=== PATIENT | female | born 1980 | race Caucasian/White ===

== ENCOUNTER 2020-09-24 15:08 | Observation (INO) | payer BC, SELFPAY ==
[2020-09-24 15:08] VITALS: BP 141/89; PULSE 89; RESP 18; TEMP 35.6; O2SAT 99
[2020-09-24 15:09] VITALS: BP 141/89; PULSE 86; RESP 18; TEMP 35.6; O2SAT 100; BMI 28.9
--- NOTE | 2020-09-24 15:29 | ED.DCSUM_ITS ---
History of Present Illness Chief Complaint: Abd Pain Informant: Patient Narrative: 40-year-old female presenting with lower abdominal pain which she states radiates across the lower abdomen. Patient states she has history of hernia repair and gastric bypass as well as history of appendectomy. She states the pain started acutely about an hour hour and a half ago. Patient complains of nausea as well. Denies vaginal complaints. No dysuria or hematuria. No fever or chills. Past Medical History - Allergies and Home Meds Allergies/Adverse Reactions: Allergies NSAIDS (Non-Steroidal Anti-Inflamma Adverse Reaction (Verified 09/24/20 15:11) Other Prior records reviewed: Yes Past Medical History: - - Gastric bypass, ovarian cysts Surgical History: - - Appendectomy, hernia repair, gastric bypass Lives: Alone Smoking Status: Unknown if ever smoked Alcohol: None Drugs: None - Family History Maternal Family History: Reports: - - Hypothyroidism. Mother had psychiatry issues. Paternal Family History: Reports: - - Muscular dystrophy Review of Systems General: Denies: Chills, Fever, Sweats Eyes: Denies: Visual changes - bilaterally, Diplopia ENT: Denies: Rhinorrhea, Sore throat Cardiovascular: Denies: Chest pain, Palpitations Respiratory: Denies: Dyspnea, Cough, Dyspnea on exertion Gastrointestinal: Reports: Abdominal pain, Nausea. Denies: Diarrhea, Constipation Genitourinary: Denies: Dysuria, Hematuria Musculoskeletal: Denies: Myalgias, Arthralgias Skin: Denies: Rash, Abscess Neurological: Denies: Headache, Weakness, Parasthesia Psych: Denies: Depression, Anxiety Physical Exam Vital Signs/Narrative: Vital Signs Temp Pulse Resp BP Pulse Ox 09/24/20 15:09 96.1 F L 86 18 141/89 H 100 09/24/20 15:08 96.1 F L 89 18 141/89 H 99 Inital Vital Signs reviewed: Yes General: Well nourished, No Acute Distress Head: Normocephalic, Atraumatic Eyes: Perrl, EOMI ENT: Moist mucous membranes, No rhinorrhea Cardiovascular: Regular rate, Regular rhythm Respiratory: No distress, CTA bilaterally Abdomen: Soft, Nondistended, Tender - Tenderness to palpation over the central lower abdomen. Abdomen is nonperitoneal. Extremities: Nontender, No edema Skin: Normal color, No rash Neurological: Alert, Oriented x3, Cranial nerves II-XII grossly intact Psychological: Normal affect, Normal Mood Diagnostic/Tx/Re-eval Clinical Impression(s) from Imaging Studies Transvaginal US 09/24/20 15:30 IMPRESSION: Normal transvaginal pelvic ultrasound with an intrauterine device. Electronically Signed: Gatito Chu MD at 17:02 EST Tel , Service support , Abdomen/Pelvis CT 09/24/20 16:38 IMPRESSION: No acute abnormality. Electronically Signed: Gatito Chu MD at 17:16 EST Tel , Service support , Chest CTA 09/24/20 18:45 IMPRESSION: Normal CTA chest examination, without a demonstrated pulmonary embolism or arterial dissection. Electronically Signed: Zina Virk MD at 19:33 EST , Service support , Laboratory Data 09/24/20 09/24/20 09/24/20 15:45 15:45 15:45 WBC 6.9 RBC 4.29 Hgb 12.0 Hct 37.3 MCV 86.9 MCH 28.0 MCHC 32.2 RDW Std Deviation 48.8 H RDW Coeff of Guilherme 15.4 H Plt Count 413 MPV 8.7 Immature Gran % (Auto) 0.400 Neut % (Auto) 57.2 Lymph % (Auto) 28.9 [place] % (Auto) 7.9 Eos % (Auto) 5.2 H Baso % (Auto) 0.4 Absolute Neuts (auto) 4.0 Absolute Lymphs (auto) 2.00 Nucleated RBC % 0 Sodium 139 Potassium 4.2 Chloride 109 H Carbon Dioxide 26.0 Anion Gap 4 L BUN 11 Creatinine 0.71 Estim Creat Clear Calc 87.13 Est GFR (MDRD) Af Amer 118 Est GFR (MDRD) Non-Af 97 BUN/Creatinine Ratio 15.5 Glucose 90 Lactic Acid Calcium 8.8 Total Bilirubin 0.30 AST 13 L ALT 23 Alkaline Phosphatase 85 Total Protein 6.9 Albumin 4.2 Globulin 2.7 Albumin/Globulin Ratio 1.6 Lipase 83 Urine Color Urine Clarity Urine pH Ur Specific [place] Urine Protein Urine Glucose (UA) Urine Ketones Urine Occult Blood Urine Nitrite Urine Bilirubin Urine Urobilinogen Ur Leukocyte Esterase Urine RBC Urine WBC Ur Squamous Epith Cells Urine Bacteria Urine Mucus Urine Test 09/24/20 09/24/20 15:58 18:15 WBC RBC Hgb Hct MCV MCH MCHC RDW Std Deviation RDW Coeff of Guilherme Plt Count MPV Immature Gran % (Auto) Neut % (Auto) Lymph % (Auto) [place] % (Auto) Eos % (Auto) Baso % (Auto) Absolute Neuts (auto) Absolute Lymphs (auto) Nucleated RBC % Sodium Potassium Chloride Carbon Dioxide Anion Gap BUN Creatinine Estim Creat Clear Calc Est GFR (MDRD) Af Amer Est GFR (MDRD) Non-Af BUN/Creatinine Ratio Glucose Lactic Acid 0.5 Calcium Total Bilirubin AST ALT Alkaline Phosphatase Total Protein Albumin Globulin Albumin/Globulin Ratio Lipase Urine Color Yellow Urine Clarity Clear Urine pH 6.0 Ur Specific [place] 1.015 Urine Protein Negative Urine Glucose (UA) Normal Urine Ketones 15 H Urine Occult Blood Negative Urine Nitrite Negative Urine Bilirubin Negative Urine Urobilinogen Normal Ur Leukocyte Esterase Negative Urine RBC 0 SEEN Urine WBC 0 SEEN Ur Squamous Epith Cells 0 SEEN Urine Bacteria RARE Urine Mucus 0 SEEN Urine Test Negative - Medical Decision Making 40-year-old female presenting with abdominal pain which was acute in onset. Patient states that initially felt like her ruptured ovarian cyst which has had in the past. Patient was given multiple doses of Dilaudid I was unable to control her pain. Patient had transvaginal ultrasound which did not identify any pathology. Patient continued to have pain in the lower abdomen and I did obtain CT of the abdomen pelvis with IV contrast which did not identify acute process. Patient was given IV fluids as well. I did attempt to obtain CT a of the abdomen pelvis given her ongoing pain and ordered a lactic acid which was 0.5 so I have a low suspicion for ischemic gut. I have found no other imaging or lab test that explain the patient's pain. I did inadvertently order CTA of the chest which was performed and was negative for acute findings. I did wish to obtain CTA of the abdomen however given that she has had 2 contrast boluses radiology will not perform this. Patient's CBC shows stable hemoglobin and no leukocytosis. CMP shows normal renal function, electrolytes, LFTs. Lipase negative. Given her ongoing pain I felt it was necessary to admit her to the hospital for pain control. I spoke with Dr. George who felt that it was probably more gynecologic and recommended that the hospitalist obtain consult from them inpatient. Patient may possibly need repeat imaging tomorrow. Impression: 1. Abdominal pain ED Disposition - Plan for ED Patient: Disposition: Acute Care Hospital [facility]
--- NOTE | 2020-09-24 15:30 | US_ITS ---
STUDY: ULTRASOUND TRANSVAGINAL CLINICAL: Female, 40 years old. LOWER PELVIC PAIN X 1 HOUR, HX OF OVARIAN CYSTS. SPORADIC CYCLE. PT ASSISTED IN MOVING TWO MORBIDLY OBESE PTS AT WORK TODAY. TECHNIQUE: Transvaginal COMPARISON: None. FINDINGS: Normal uterine size measuring 7.2 x 4.3 x 3.3 cm in maximal craniocaudal dimension. There are no myometrial masses. Normal endometrial thickness measuring 4 mm. There are no endometrial masses, and there is no fluid in the endometrial cavity. Intrauterine device within the endometrial cavity. Normal uterine cervix. Normal right ovary, measuring 3.5 x 3.8 x 2.2 cm. There are multiple follicles without a dominant cyst. Normal left ovary, measuring 3.5 x 1.7 x 2.3 cm. There are multiple follicles without a dominant cyst. There is no free fluid in the pelvis. Polycystic ovary disease: No. US/Transvaginal Non- IMPRESSION: Normal transvaginal pelvic ultrasound with an intrauterine device. Electronically Signed: Gatito Chu MD at 17:02 EST Tel , Service support ,
[2020-09-24] MEDS: Ondansetron 4 MG/2 ML Vial IV (15:48)
[2020-09-24] MEDS: Morphine 4 MG/ML Syringe IV (15:48)
[2020-09-24 16:05] LABS: Basophil# 0.03 X10^3/uL; Basophil% 0.4 % (0-1); Eosinophil# 0.36 X10^3/uL; Eosinophils% 5.2 % (0-5); Hematocrit 37.3 % (37-47); Lymphocyte % 28.9 % (19-41); Mean Corp Hgb Conc 32.2 g/dL (32-36); Mean Corpuscular Volume 86.9 fL (81-99); Mean Platelet Vol. 8.7 fl (6.2-12.0); Monocyte# 0.55 X10^3/uL; Monocyte% 7.9 % (0-10); NRBC Flagged by Analyzer 0 % (0-5); Neutrophil # 3.95 X10^3/uL (2.7-7.7); Neutrophil % 57.2 % (47-70); Platelet Count 413 K/mm3 (150-450); RBC Distribution Width CV 15.4 % (11.6-14.6); RBC Distribution Width SD 48.8 fl (35.1-43.9); Red Blood Count 4.29 M/mm3 (4.2-5.4); White Blood Count 6.9 K/mm3 (4.4-11.0)
[2020-09-24 16:17] LABS: ALB/GLOB Ratio 1.6 RATIO (0.9-2.4); AST(SGOT) 13 U/L (15-37); Alanine Aminotransfer ALT/SGPT 23 U/L (13-56); Albumin, Serum 4.2 g/dL (3.2-5.0); Alkaline Phosphatase 85 U/L (45-117); Anion Gap 4 (5-15); BUN 11 mg/dL (7-18); BUN/Creat Ratio 15.5 RATIO (10-20); Calcium,Total 8.8 mg/dL (8.5-10.1); Chloride 109 mmol/L (98-107); Creatinine, Serum 0.71 mg/dL (0.55-1.02); EST Glomerular Filtration Rate 97 mL/min (>60); Est Glom Filt Rate - Afr Amer 118 mL/min (>60); Estimated Creatinine Clearance 87.13 ml/min; Globulin 2.7 g/dL (2.2-4.2); Glucose 90 mg/dL (74-106); Potassium 4.2 mmol/L (3.5-5.1); Protein, Total 6.9 g/dL (6.4-8.2); Sodium Level 139 mmol/L (136-145)
[2020-09-24] MEDS: HYDROmorphone 0.5 MG/0.5 ML SYRINGE IV ×6 (16:20→23:36)
[2020-09-24 16:23] LABS: Mucous, Urine 0 SEEN /hpf (<or=2+); Red Blood Cells-Urine 0 SEEN /hpf (0-5); Squamous Epithelial Cells - UA 0 SEEN /hpf (5-10); White Blood Cells 0 SEEN /hpf (0-5)
[2020-09-24 16:28] LABS: Color, Urine Yellow (Yellow); Glucose, Dipstick Normal (Normal); Ketone-Dipstick 15 mg/dl (Negative); Leukocyte Esterase-Dipstick Negative /ul (Negative); Nitrite-Dipstick Negative (Negative); Occult Blood-Urine Negative /ul (Negative); Protein-Dipstick Negative (Negative); Specific Gravity, Urine 1.015 (1.002-1.030); Urine Bilirubin Dipstick Negative (Negative); Urine Clarity Clear (Clear); Urine Urobilinogen Normal (Normal)
--- NOTE | 2020-09-24 16:38 | CT_ITS ---
STUDY: CT ABDOMEN AND PELVIS WITH CONTRAST REASON FOR EXAM: Female, 40 years old. Lower abdomen pain, hx ovarian cysts. Prior gastric bypass, hypertension. RADIATION DOSAGE (If Supplied By Facility): CTDIvol = ( 10.05 ) mGy, DLP = ( 702.95 ) mGycm TECHNIQUE: Transaxial images were obtained from the dome of the diaphragm to the symphysis pubis without oral contrast. IV 100mL Isovue-300 was administered. Sagittal and coronal images were reconstructed. Individualized dose optimization techniques were used for this CT. COMPARISON: None. FINDINGS: The visualized lung bases are unremarkable. The visualized portions of the heart are within normal limits. Normal liver. There is non-visualization of the gallbladder, which may be secondary to either contraction or a prior cholecystectomy. Normal spleen. Normal pancreas. Normal bilateral adrenal glands. Normal right kidney. Normal left kidney. Status post gastric surgery, likely gastric bypass. Normal small intestine. Normal colon. There are surgical clips in the region of the appendix consistent with a prior appendectomy. Normal abdominal aorta. Normal inferior vena cava. Normal retroperitoneum. Normal urinary bladder. Normal abdominal wall. 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 10 mm of anterolisthesis of L5 on S1 consistent with grade [address]/Abdomen/Pelvis W IV Cont ONLY IMPRESSION: No acute abnormality. Electronically Signed: Gatito Chu MD at 17:16 EST Tel , Service support ,
[2020-09-24 16:47] LABS: Bacteria RARE /hpf (None Seen); Internal QC Validated? YES +Cl - CLEAR BKGD; Pregnancy, Urine Negative Negative
[2020-09-24] MEDS: 0.9% Normal Saline 1,000 ML 999 ML IV (18:15)
--- NOTE | 2020-09-24 18:45 | CT_ITS ---
STUDY: CTA CHEST REASON FOR EXAM: Female, 40 years old. ABD PAIN. NO CHEST COMPLAINTS. TALKED TO DR. PATEL TOLD HIM WE ALREADY INJECTED PATIENT HE STILL WANTED PATIENT RE INJECTED. TALKED TO THE RADIOLOGIST. AND HE ALSO SAID TO GO AHEAD AND INJECTED AGAIN IF ER DOC THOUGHT IT WAS NEEDED RADIATION DOSAGE (If Supplied By Facility): CTDIvol = ( 7.07 ) mGy, DLP = ( 190.76 ) mGycm TECHNIQUE: The examination was performed with the intravenous administration of IV 100mL Isovue-370. Post-processing of the angiographic images was performed, with multiplanar reformation and 3D reconstruction. Individualized dose optimization techniques were used for this CT. COMPARISON: None. FINDINGS: Normal enhancement of the main pulmonary artery and right and left pulmonary arteries. Normal enhancement of the bilateral peripheral pulmonary arteries. There is no demonstrated pulmonary embolism. Normal thoracic aorta and visualized great vessels. There is no demonstrated aortic dissection. Normal heart and pericardium. Normal mediastinum. Normal hilar regions. Normal visualized trachea and bronchi. The lungs are well expanded. Normal pulmonary parenchyma. Normal pleura. Normal chest wall structures. Normal osseous structures. Normal visualized upper abdomen. CT/CTA Chest W/WO Contrast IMPRESSION: Normal CTA chest examination, without a demonstrated pulmonary embolism or arterial dissection. Electronically Signed: Zina Virk MD at 19:33 EST , Service support ,
[2020-09-24 19:05] LABS: Lactic Acid 0.5 mmol/L (0.4-1.9)
[2020-09-24 19:49] VITALS: RESP 18
--- NOTE | 2020-09-24 20:06 | HP.PCM_ITS ---
Problem List (1) Intractable abdominal pain Status: Acute History of Present Illness Date of Admission: 09/24/20 Chief Complaint: Abdominal pain The patient is a 40 year old F with a significant history of hypertension; hypothyroidism; GERD; bipolar disorder; appendectomy; hernia repair and gastric bypass surgery who presents to the emergency department with excruciating progressively worsening abdominal pain. Her abdominal pain started from her left lower abdomen and progressed to her right lower abdomen. She described the pain as sharp. She denies any aggravating or ameliorating factors to the pain. Because of the pain she left her work and came to the emergency department. Multiple doses of Dilaudid at emergency department did not help with the pain. Patient initially told that it was a ruptured ovarian cyst since she has had that in the past. She had a one-time episode of vomiting that she attributed it to pain. She denies diarrhea. Last time her bowels moved was on on the morning of the day of presentation Past Medical History Medical History: Medical History (Last Updated 09/24/20 @ 20:[address] Clement España MD) Hypothyroidism E03.9 Hypertension I10 Allergies NSAIDS (Non-Steroidal Anti-Inflamma Adverse Reaction (Verified 09/24/20 15:11) Other Home Medications: Ambulatory Orders Medication Instructions Recorded Gabapentin [Neurontin] 600 mg PO 4X/DAY 09/24/20 Hydrochlorothiazide [Hctz] 25 mg PO DAILY 09/24/20 Lamotrigine [Lamictal] 200 mg PO DAILY 09/24/20 Levothyroxine [Synthroid] 50 mcg PO DAILY 09/24/20 Lisinopril [Zestril] 40 mg PO DAILY 09/24/20 Pantoprazole Sodium [Protonix] 40 mg PO BID 09/24/20 Paroxetine HCl [Paxil Cr] 37.5 mg PO DAILY 09/24/20 Quetiapine Fumarate [Seroquel] 300 mg PO DAILY 09/24/20 Surgical History: - - Appendectomy, hernia repair, gastric bypass Lives: Alone Smoking Status: Current every day smoker Tobacco Use: Cigarettes Alcohol: None Drugs: None - *Family History Maternal History Items: - - Hypothyroidism. Mother had psychiatry issues. Paternal History Items: - - Muscular dystrophy Review of Systems Constitutional: Denies: Chills, Fever, Weight Change HEENT: Denies: Head Aches, Sinus Congestion, Sinus Drainage Cardiovascular: Denies: Chest Pain, Palpitations Respiratory: Denies: Cough, Shortness of breath at rest, Sputum production Gastrointestinal: Reports: Abdominal Pain, Vomiting Genitourinary: Denies: Dysuria Musculoskeletal: Denies: Joint Pain, Joint Tenderness Skin: Denies: Rash, Wounds Neurological: Denies: Numbness, Tingling, Focal weakness Psychiatric: Denies: Anxiety, Depression, Homicidal Ideations, Suicidal Ideations Hematologic/ Lymphatic: Denies: Easy Bruising, Easy Bleeding VTE Information - Inpt Only VTE Present on Admission: No VTE Mechan Device Prophylaxis: None VTE Pharm Prophylaxis ordered?: Yes Patient Problems: Active and Suspected Problems (Last Updated 09/24/20 @ 20:[address] Clement España MD) Intractable abdominal pain (Acute) - Physical Exam Vitals/I&O's: Vital Signs Temp Pulse Resp BP Pulse Ox 96.1 F L 86 18 141/89 H 100 09/24/20 15:09 09/24/20 15:09 09/24/20 19:49 09/24/20 15:09 09/24/20 15:09 Oxygen Delivery Method Room Air Weight: 74 kg Body Mass Index (BMI) 28.9 General: Alert, Oriented x3, - - Writhing in pain HEENT: Atraumatic, PERRLA, EOMI, Normocephalic Neck: Supple, No JVD, Negative Carotid Bruits Lungs: Clear to auscultation, Normal air movement, No rhonchi, No wheeze, No rales Cardiovascular: Regular rate, Regular Rhythm, Normal S1, Normal S2, No murmurs Abdomen: Bowel Sounds Present, Soft, Non Tender Extremities: No edema, Capillary Refill Less than 3 Seconds Skin: No rashes, No breakdown Musculoskeletal: No Tenderness to Palpation of Joints or Extremities Neurological: Cranial nerves II-XII grossly intact Psych/Mental Status: Normal Affect, Appropriate Laboratory Results 09/24/20 15:45: WBC 6.9, RBC 4.29, Hgb 12.0, Hct 37.3, MCV 86.9, MCH 28.0, MCHC 32.2, RDW Std Deviation 48.8 H, RDW Coeff of Guilherme 15.4 H, Plt Count 413, MPV 8.7, Immature Gran % (Auto) 0.400, Neut % (Auto) 57.2, Lymph % (Auto) 28.9, [place] % (Auto) 7.9, Eos % (Auto) 5.2 H, Baso % (Auto) 0.4, Absolute Neuts (auto) 4.0, Absolute Lymphs (auto) 2.00, Nucleated RBC % 0 09/24/20 15:45: Sodium 139, Potassium 4.2, Chloride 109 H, Carbon Dioxide 26.0, Anion Gap 4 L, BUN 11, Creatinine 0.71, Estim Creat Clear Calc 87.13, Est GFR (MDRD) Af Amer 118, Est GFR (MDRD) Non-Af 97, BUN/Creatinine Ratio 15.5, Glucose 90, Calcium 8.8, Total Bilirubin 0.30, AST 13 L, ALT 23, Alkaline Phosphatase 85, Total Protein 6.9, Albumin 4.2, Globulin 2.7, Albumin/Globulin Ratio 1.6 09/24/20 15:58: Urine Color Yellow, Urine Clarity Clear, Urine pH 6.0, Ur Specific [place] 1.015, Urine Protein Negative, Urine Glucose (UA) Normal, Urine Ketones 15 H, Urine Occult Blood Negative, Urine Nitrite Negative, Urine Bilirubin Negative, Urine Urobilinogen Normal, Ur Leukocyte Esterase Negative, Urine RBC 0 SEEN, Urine WBC 0 SEEN, Ur Squamous Epith Cells 0 SEEN, Urine Bacteria RARE, Urine Mucus 0 SEEN, Urine Test Negative 09/24/20 18:15: Lactic Acid 0.5 Assessment/Plan All Active Problems (Last Updated 09/24/20 @ 20:[address] Clement España MD) Intractable abdominal pain (Acute) The patient is a 40 year old F with a significant history of hypertension; hypothyroidism; GERD bipolar disorder; appendectomy; hernia repair and gastric bypass surgery presents emergency department with excruciating progressively w orsening abdominal pain. Intractable abdominal pain Etiology unclear. Received morphine sulfate and multiple doses of Dilaudid at emergency department. Abdomen and pelvis CT was unrevealing. Transvaginal ultrasound was unrevealing. The chest CTA was incidentally done instead of abdominal CTA. Thereafter abdominal CTA could not be ordered as patient would have had 3 CAT scans within a short interval. Lactic acid was unremarkable. Unlikely pancreatitis since it is lower abdominal pain. However will order lipase. As needed Dilaudid ordered. Bowel protocol and antiemetics in place. Lactated Ringer's at 75 mL's per hour ordered. Bentyl ordered. Hypertension Blood pressure on presentation was now within goal Hydrochlorothiazide and lisinopril continued Trend blood pressure and adjust blood pressure medication as necessary. Manic depression Lamotrigine; paroxetine and Seroquel continued Chronic pain Neurontin continued DVT prophylaxis Subcutaneous Lovenox ordered. OBSV E&M: [id number] Initial observation care L2
[2020-09-24 20:29] VITALS: BP 141/98; PULSE 96; RESP 16; TEMP 36.8; O2SAT 98
[2020-09-24 21:10] VITALS: O2SAT 98; BMI 28.7
[2020-09-24 21:35] VITALS: BMI 28.7
[2020-09-24 21:45] VITALS: BP 122/88; PULSE 88; RESP 16; TEMP 36.6; O2SAT 98
[2020-09-24] MEDS: Gabapentin 600 MG Tablet PO (21:47)
[2020-09-24] MEDS: Dicyclomine 10 MG Capsule PO (21:47)
[2020-09-24] MEDS: Pantoprazole Sodium 40 MG Tablet PO (21:48)
[2020-09-24] MEDS: Lactated Ringers 1,000 ML 75 ML IV (21:50)
[2020-09-24 22:32] LABS: Lipase 83 U/L (73-393)
[2020-09-24] MEDS: 0.9% Saline Lock 10 ML Syringe IV (23:36)
[2020-09-25] MEDS: HYDROmorphone 0.5 MG/0.5 ML SYRINGE IV ×8 (02:09→18:40)
[2020-09-25 02:15] VITALS: BP 116/71; PULSE 80; RESP 17; TEMP 36.7; O2SAT 98
[2020-09-25] MEDS: Ondansetron 4 MG/2 ML Vial IV ×2 (03:38→16:39)
[2020-09-25] MEDS: 0.9% Saline Lock 10 ML Syringe IV ×4 (03:39→18:41)
[2020-09-25] MEDS: Dicyclomine 10 MG Capsule PO (06:00)
[2020-09-25] MEDS: Levothyroxine 50 MCG Tablet PO (06:00)
[2020-09-25 06:53] LABS: Absolute Lymphocyte Count 1.37 X10^3/uL (0.83-4.51); Absolute Neutrophil Count 3.4 X10^3/uL (2.0-7.7); Basophil# 0.03 X10^3/uL; Basophil% 0.5 % (0-1); Eosinophil# 0.29 X10^3/uL; Eosinophils% 5.1 % (0-5); Hemoglobin 11.2 g/dL (12.0-15.0); Lymphocyte # 1.37 X10^3/ul (4.0); Lymphocyte % 24.2 % (19-41); Mean Corp Hgb Conc 31.1 g/dL (32-36); Mean Corpuscular Hgb 27.5 pg (27.0-32.0); Mean Corpuscular Volume 88.2 fL (81-99); Mean Platelet Vol. 8.6 fl (6.2-12.0); Monocyte# 0.54 X10^3/uL; Monocyte% 9.5 % (0-10); NRBC Flagged by Analyzer 0 % (0-5); Neutrophil # 3.43 X10^3/uL (2.7-7.7); Neutrophil % 60.5 % (47-70); Platelet Count 330 K/mm3 (150-450); RBC Distribution Width CV 15.3 % (11.6-14.6); RBC Distribution Width SD 49.9 fl (35.1-43.9); Red Blood Count 4.08 M/mm3 (4.2-5.4); White Blood Count 5.7 K/mm3 (4.4-11.0)
[2020-09-25 07:10] VITALS: O2SAT 95
[2020-09-25 07:19] LABS: Anion Gap 4 (5-15); BUN 8 mg/dL (7-18); BUN/Creat Ratio 13.3 RATIO (10-20); Calcium,Total 8.2 mg/dL (8.5-10.1); Chloride 106 mmol/L (98-107); EST Glomerular Filtration Rate 118 mL/min (>60); Est Glom Filt Rate - Afr Amer 142 mL/min (>60); Glucose 114 mg/dL (74-106); Potassium 3.7 mmol/L (3.5-5.1); Sodium Level 138 mmol/L (136-145)
[2020-09-25] MEDS: Lisinopril 40 MG Tablet PO (08:05)
[2020-09-25] MEDS: lamoTRIgine 100 MG Tablet 200 MG PO (08:05)
[2020-09-25] MEDS: hydroCHLOROthiazide 25 MG Tablet PO (08:05)
[2020-09-25] MEDS: Pantoprazole Sodium 40 MG Tablet PO (08:05)
[2020-09-25] MEDS: Enoxaparin 40 MG/0.4 ML Syringe SC (08:06)
[2020-09-25] MEDS: Gabapentin 600 MG Tablet PO ×3 (08:07→18:01)
[2020-09-25] MEDS: Acetaminophen 325 MG Tablet 650 MG PO (08:13)
[2020-09-25] MEDS: PARoxetine CR 12.5 MG Tablet 37.5 MG PO (08:14)
[2020-09-25 08:15] VITALS: BP 113/72; PULSE 90; RESP 20; TEMP 36.7; O2SAT 95
[2020-09-25] MEDS: Dicyclomine 10 MG Capsule 20 MG PO ×2 (11:37→16:40)
[2020-09-25] MEDS: Lactated Ringers 1,000 ML 75 ML IV (12:14)
--- NOTE | 2020-09-25 13:13 | CON.PCM_ITS ---
Reason for Consult Date of Consultation: 09/25/20 Reason for Consultation: Pelvic pain History of Present Illness: The patient is a 40 year old F with a longstanding history of ovarian cysts. IUD was placed by Dr. Gaston in [place] recently, this is her second IUD for bleeding control and cyst control. Patient started with sudden sharp pain yesterday that persisted and is now constant painful heavy pressure in her pelvis. Pain is not relieved by anything but does not seem to be getting worse. Past Medical History Medical History: Medical History (Last Updated 09/24/20 @ 20:[address] Clement España MD) Hypothyroidism E03.9 Hypertension I10 Allergies NSAIDS (Non-Steroidal Anti-Inflamma Adverse Reaction (Verified 09/24/20 15:11) Other Home Medications: Ambulatory Orders Medication Instructions Recorded Acetaminophen/Butalbital/Caffe 1 tab PO Q4H PRN PRN 09/24/20 [Fioricet] Gabapentin [Neurontin] 600 mg PO 4X/DAY 09/24/20 Hydrochlorothiazide [Hctz] 25 mg PO DAILY 09/24/20 Lamotrigine [Lamictal] 200 mg PO DAILY 09/24/20 Levothyroxine [Synthroid] 50 mcg PO DAILY 09/24/20 Lisinopril [Zestril] 40 mg PO DAILY 09/24/20 Pantoprazole Sodium [Protonix] 40 mg PO BID 09/24/20 Paroxetine HCl [Paxil Cr] 37.5 mg PO DAILY 09/24/20 Quetiapine Fumarate [Seroquel] 300 mg PO DAILY 09/24/20 traZODone [Desyrel] 100 mg PO QHS 09/24/20 Surgical History: - - Appendectomy, hernia repair, gastric bypass Lives: Alone Smoking Status: Current every day smoker Tobacco Use: Cigarettes Alcohol: None Drugs: None - *Family History Maternal History Items: - - Hypothyroidism. Mother had psychiatry issues. Paternal History Items: - - Muscular dystrophy Review of Systems Constitutional: Denies: Chills, Fever, Weight Change HEENT: Denies: Head Aches, Sinus Congestion, Sinus Drainage Cardiovascular: Denies: Chest Pain, Palpitations Respiratory: Denies: Cough, Shortness of breath at rest, Sputum production Gastrointestinal: Reports: Abdominal Pain. Denies: Nausea, Vomiting Genitourinary: Denies: Dysuria Gynecological: Denies: Excessively long or heavy periods, Sexual concerns, Vaginal bleeding, Vaginal discharge Musculoskeletal: Denies: Joint Pain, Joint Tenderness Skin: Denies: Rash, Wounds Neurological: Denies: Numbness, Tingling, Focal weakness Psychiatric: Denies: Anxiety, Depression, Homicidal Ideations, Suicidal Ideations Hematologic/ Lymphatic: Denies: Easy Bruising, Easy Bleeding Patient Problems: Active and Suspected Problems (Last Updated 09/24/20 @ 20:[address] Clement España MD) Intractable abdominal pain (Acute) - Physical Exam Vitals/I&O's: Vital Signs Temp Pulse Resp BP Pulse Ox 98.1 F 90 20 H 113/72 95 09/25/20 08:15 09/25/20 08:15 09/25/20 08:15 09/25/20 08:15 09/25/20 08:15 Oxygen Delivery Method Room Air Weight: 162 lb 1.6 oz Body Mass Index (BMI) 28.7 Intake and Output for Last 24 Hours 09/23/20 09/24/20 09/25/20 23:59 23:59 23:59 Intake Total 1150 / 1150 1480 / 1480 Balance 1150 / 1150 1480 / 1480 General: Alert, Oriented x3, Cooperative HEENT: Atraumatic, PERRLA, Normocephalic Oral: Moist Mucosa Neck: Supple Abdomen: Soft, Non Tender, Non-Distended Extremities: No clubbing, No cyanosis, No edema Skin: No rashes Neurological: Neuro grossly intact Laboratory Results 09/24/20 15:45: WBC 6.9, RBC 4.29, Hgb 12.0, Hct 37.3, MCV 86.9, MCH 28.0, MCHC 32.2, RDW Std Deviation 48.8 H, RDW Coeff of Guilherme 15.4 H, Plt Count 413, MPV 8.7, Immature Gran % (Auto) 0.400, Neut % (Auto) 57.2, Lymph % (Auto) 28.9, [place] % (Auto) 7.9, Eos % (Auto) 5.2 H, Baso % (Auto) 0.4, Absolute Neuts (auto) 4.0, Absolute Lymphs (auto) 2.00, Nucleated RBC % 0 09/24/20 15:45: Sodium 139, Potassium 4.2, [place] 109 H, Carbon Dioxide 26.0, Anion Gap 4 L, BUN 11, Creatinine 0.71, Estim Creat Clear Calc 87.13, Est GFR (MDRD) Af Amer 118, Est GFR (MDRD) Non-Af 97, BUN/Creatinine Ratio 15.5, Glucose 90, Calcium 8.8, Total Bilirubin 0.30, AST 13 L, ALT 23, Alkaline Phosphatase 85, Total Protein 6.9, Albumin 4.2, Globulin 2.7, Albumin/Globulin Ratio 1.6 09/24/20 15:45: Lipase 83 09/24/20 15:58: Urine Color Yellow, Urine Clarity Clear, Urine pH 6.0, Ur Specific [place] 1.015, Urine Protein Negative, Urine Glucose (UA) Normal, Urine Ketones 15 H, Urine Occult Blood Negative, Urine Nitrite Negative, Urine Bilirubin Negative, Urine Urobilinogen Normal, Ur Leukocyte Esterase Negative, Urine RBC 0 SEEN, Urine WBC 0 SEEN, Ur Squamous Epith Cells 0 SEEN, Urine Bacteria RARE, Urine Mucus 0 SEEN, Urine Test Negative 09/24/20 18:15: Lactic Acid 0.5 09/25/20 06:40: WBC 5.7, RBC 4.08 L, Hgb 11.2 L, Hct 36.0 L, MCV 88.2, MCH 27.5, MCHC 31.1 L, RDW Std Deviation 49.9 H, RDW Coeff of Guilherme 15.3 H, Plt Count 330, MPV 8.6, Immature Gran % (Auto) 0.200, Neut % (Auto) 60.5, Lymph % (Auto) 24.2, [place] % (Auto) 9.5, Eos % (Auto) 5.1 H, Baso % (Auto) 0.5, Absolute Neuts (auto) 3.4, Absolute Lymphs (auto) 1.37, Nucleated RBC % 0 09/25/20 06:40: Sodium 138, Potassium 3.7, [place] 106, Carbon Dioxide 28.0, Anion Gap 4 L, BUN 8, Creatinine 0.60, Estim Creat Clear Calc 103.10, Est GFR (MDRD) Af Amer 142, Est GFR (MDRD) Non-Af 118, BUN/Creatinine Ratio 13.3, Glucose 114 H, Calcium 8.2 L Current Medications Acetaminophen (Acetaminophen 325 Mg Tablet) 650 mg PO Q6H PRN PRN PRN Reason: Pain Score 1-10/Temp > 100.7 F Last Admin: 09/25/20 08:13 Dose: 650 mg Documented by: Dicyclomine HCl (Dicyclomine 10 Mg Capsule) 20 mg PO ACHS [facility] Last Admin: 09/25/20 11:37 Dose: 20 mg Documented by: Enoxaparin Sodium (Enoxaparin 40 Mg/0.4 Ml Syringe) 40 mg SC DAILY [facility] Last Admin: 09/25/20 08:06 Dose: 40 mg Documented by: Gabapentin (Gabapentin 600 Mg Tablet) 600 mg PO 4X/DAY [facility] Last Admin: 09/25/20 12:17 Dose: 600 mg Documented by: Hydrochlorothiazide (Hydrochlorothiazide 25 Mg Tablet) 25 mg PO DAILY [facility] Last Admin: 09/25/20 08:05 Dose: 25 mg Documented by: Hydromorphone HCl (Hydromorphone 0.5 Mg/0.5 Ml Syringe) 0.5 mg IV Q2H PRN PRN PRN Reason: Pain Score 6-10 Last Admin: 09/25/20 12:14 Dose: 0.5 mg Documented by: Lactated Ringer's () 1,000 mls @ 75 mls/hr IV .[id number] [facility] Last Admin: 09/25/20 12:14 Dose: 75 mls/hr Documented by: Lamotrigine (Lamotrigine 100 Mg Tablet) 200 mg PO DAILY [facility] Last Admin: 09/25/20 08:05 Dose: 200 mg Documented by: Levothyroxine Sodium (Levothyroxine 50 Mcg Tablet) 50 mcg PO DAILY@0600 [facility] Last Admin: 09/25/20 06:00 Dose: 50 mcg Documented by: Lisinopril (Lisinopril 40 Mg Tablet) 40 mg PO DAILY [facility] Last Admin: 09/25/20 08:05 Dose: 40 mg Documented by: Melatonin (Melatonin 3 Mg Tablet) 3 mg PO QHS PRN PRN PRN Reason: INSOMNIA Nicotine (Nicotine 14 Mg Patch) 14 mg TD DAILY [facility] Last Admin: 09/25/20 08:07 Dose: 14 mg Documented by: Ondansetron HCl (Ondansetron 4 Mg/2 Ml Vial) 4 mg IV Q8H PRN PRN PRN Reason: NAUSEA/VOMITING Last Admin: 09/25/20 03:38 Dose: 4 mg Documented by: Pantoprazole Sodium (Pantoprazole Sodium 40 Mg Tablet) 40 mg PO BID [facility] Last Admin: 09/25/20 08:05 Dose: 40 mg Documented by: Paroxetine HCl (Paroxetine Cr 12.5 Mg Tablet) 37.5 mg PO DAILY [facility] Last Admin: 09/25/20 08:14 Dose: 37.5 mg Documented by: Quetiapine Fumarate (Quetiapine 100 Mg Tablet) 300 mg PO DAILY@2200 [facility] Last Admin: 09/24/20 23:38 Dose: Not Given Documented by: Senna/Docusate Sodium (Senna/Docusate Sodium 1 Tablet) 2 tablet PO BID PRN PRN PRN Reason: Constipation Sodium [place] (0.9% Saline Lock 10 Ml Syringe) 10 - 40 ml IV UD PRN PRN Reason: SALINE FLUSH Last Admin: 09/25/20 10:04 Dose: 10 ml Documented by: Assessment/Plan All Active Problems (Last Updated 09/24/20 @ 20:[address] Clement España MD) Intractable abdominal pain (Acute) 40-year-old last menstrual period 08/22/2020 with sudden abdominal pain that is now constant. Based on evaluation and imaging studies no TICKET ATTENDANT findings for pain. Discussed risks of STDs, patient declines STDs stating that she is not sexually active and has never had STDs. No pathology found in the uterus or ovaries. Including no signs of ruptured ovarian cyst, no free fluid in the pelvis. Overall difficult to discern origin of her pain. Based on surgical history and longstanding history of gastric bypass along with gastric ulcers GI seems like the most probable. Patient with history of back pain and findings found on CT cannot rule out musculoskeletal. But at this time again no findings of TICKET ATTENDANT origin. Will sign off at this time. Suggest patient follows up with Dr. Gaston in [place] her primary LEADERSHIP COACH, but is always welcome to be seen here in [place].
--- NOTE | 2020-09-25 15:29 | PCM.DC ---
- Discharge Diagnoses Current Active Problems: Current Active and Chronic Problems (Last Updated 09/24/20 @ 20:[address] Clement España MD) Intractable abdominal pain (Acute) Reason(s) for Visit for Discharge Instructions: Abdominal pain You will use the following diet at home:: Regular Your food should be the consistency of: Regular Your liquids should be the consistency of: Regular/Thin Discharge Activity: Return to Normal Activity Additional Instructions: Your work-up in this hospital stay for abdominal pain was unremarkable. You are recommended to follow-up with gastroenterology or pain management in the outpatient. Continue to take Bentyl as needed for the abdominal pain. Allergies/Adverse Reactions: Allergies NSAIDS (Non-Steroidal Anti-Inflamma Adverse Reaction (Verified 09/24/20 15:11) Other Medications to take at Discharge Acetaminophen/Butalbital/Caffe [Fioricet] 1 tab PO Q4H PRN PRN 09/24/20 Gabapentin [Neurontin] 600 mg PO 4X/DAY 09/24/20 Hydrochlorothiazide [Hctz] 25 mg PO DAILY 09/24/20 Lamotrigine [Lamictal] 200 mg PO DAILY 09/24/20 Levothyroxine [Synthroid] 50 mcg PO DAILY 09/24/20 Lisinopril [Zestril] 40 mg PO DAILY 09/24/20 Pantoprazole Sodium [Protonix] 40 mg PO BID 09/24/20 Paroxetine HCl [Paxil Cr] 37.5 mg PO DAILY 09/24/20 Quetiapine Fumarate [Seroquel] 300 mg PO DAILY 09/24/20 traZODone [Desyrel] 100 mg PO QHS 09/24/20 Dicyclomine HCl [Bentyl] 20 mg PO ACHS 10 Days #30 cap 09/25/20 The following prescriptions were given: Dicyclomine HCl [Bentyl] 20 mg PO ACHS 10 Days #30 cap Transmission Status: Pending to [facility] Primary Care Physician: [facility] [address] Doctor,Out of [NON-STAFF] - Please follow up with your Primary Care Physician in: within 1 week Test Results: Test results from this visit will be discussed in further detail at your follow-up appointment, if applicable. Proposed Discharge Date: 09/25/20
--- NOTE | 2020-09-25 15:30 | DS.PCM_ITS ---
Discharge Date and Diagnosis - Problem List Patient Problems: Active and Suspected Problems (Last Updated 09/24/20 @ 20:[address] Clement España MD) Intractable abdominal pain (Acute) Date of Admission: 09/24/20 Date of Discharge: 09/25/20 - Primary Discharge Diagnosis Acute Problems: Active Problems (Last Updated 09/24/20 @ 20:[address] Celment España MD) Intractable abdominal pain (Acute), unclear etiology Hospital Course and Treatment Imaging Results: Clinical Impression(s) from Imaging Studies Transvaginal US 09/24/20 15:30 IMPRESSION: Normal transvaginal pelvic ultrasound with an intrauterine device. Electronically Signed: Gatito Chu MD at 17:02 EST Tel , Service support , Abdomen/Pelvis CT 09/24/20 16:38 IMPRESSION: No acute abnormality. Electronically Signed: Gatito Chu MD at 17:16 EST Tel , Service support , Chest CTA 09/24/20 18:45 IMPRESSION: Normal CTA chest examination, without a demonstrated pulmonary embolism or arterial dissection. Electronically Signed: Zina Virk MD at 19:33 EST , Service support , Operations: None Procedures: None Summary of Care Provided: The patient is a 40 year old F with PMHx of hypertension, hypothyroidism, history of gastric bypass surgery, bipolar disorder comes in with excruciating abdominal pain. Patient's vitals were stable as well as work-up in the emergency department was unremarkable. Transvaginal ultrasound, abdominal pelvic CT as well as chest CT was unremarkable. Patient was admitted to the floor for intractable abdominal pain. She was noted by nursing to be insistent on her IV pain medications. When I saw her, she insisted on a gynecology consult. Gynecology was consulted and had no new recommendations. Patient was counseled to follow-up with GI or with pain management. OARRS/PMDP search was done prior to discharge and she last failed any narcotics on 08/18/20. Patient was discharged with a 3-day supply of oxycodone. Patient Problems: Active and Suspected Problems (Last Updated 09/24/20 @ 20:[address] Clement España MD) Intractable abdominal pain (Acute) Subjective: On the day of discharge, patient was seen and examined. She complains of generalized sharp, squeezing pain that comes and goes, stated that her pain regimen was not working. Denies any diarrhea nausea or vomiting or fever or chills. Objective: Physical exam: General: Alert, Oriented x3, appears to be in some pain HEENT: Atraumatic, PERRLA, EOMI, Normocephalic Neck: Supple, No JVD, Negative Carotid Bruits Lungs: Clear to auscultation, Normal air movement, No rhonchi, No wheeze, No rales Cardiovascular: Regular rate, Regular Rhythm, Normal S1, Normal S2, No murmurs Abdomen: Bowel Sounds Present, Soft, Non Tender Extremities: No edema, Capillary Refill Less than 3 Seconds Skin: No rashes, No breakdown Musculoskeletal: No Tenderness to Palpation of Joints or Extremities Neurological: Cranial nerves II-XII grossly intact Psych/Mental Status: Normal Affect, Appropriate - Physical Exam Vitals/I&O's: Vital Signs Temp Pulse Resp BP Pulse Ox 98.1 F 90 20 H 113/72 95 09/25/20 08:15 09/25/20 08:15 09/25/20 08:15 09/25/20 08:15 09/25/20 08:15 Oxygen Delivery Method Room Air Weight: 73.527 kg Body Mass Index (BMI) 28.7 Intake and Output for Last 24 Hours 09/23/20 09/24/20 09/25/20 23:59 23:59 23:59 Intake Total 1150 / 1150 1480 / 1480 Balance 1150 / 1150 1480 / 1480 Laboratory Results 09/24/20 15:45: WBC 6.9, RBC 4.29, Hgb 12.0, Hct 37.3, MCV 86.9, MCH 28.0, MCHC 32.2, RDW Std Deviation 48.8 H, RDW Coeff of Guilherme 15.4 H, Plt Count 413, MPV 8.7, Immature Gran % (Auto) 0.400, Neut % (Auto) 57.2, Lymph % (Auto) 28.9, [place] % (Auto) 7.9, Eos % (Auto) 5.2 H, Baso % (Auto) 0.4, Absolute Neuts (auto) 4.0, Absolute Lymphs (auto) 2.00, Nucleated RBC % 0 09/24/20 15:45: Sodium 139, Potassium 4.2, [place] 109 H, Carbon Dioxide 26.0, Anion Gap 4 L, BUN 11, Creatinine 0.71, Estim Creat Clear Calc 87.13, Est GFR (MDRD) Af Amer 118, Est GFR (MDRD) Non-Af 97, BUN/Creatinine Ratio 15.5, Glucose 90, Calcium 8.8, Total Bilirubin 0.30, AST 13 L, ALT 23, Alkaline Phosphatase 85, Total Protein 6.9, Albumin 4.2, Globulin 2.7, Albumin/Globulin Ratio 1.6 09/24/20 15:45: Lipase 83 09/24/20 15:58: Urine Color Yellow, Urine Clarity Clear, Urine pH 6.0, Ur Specific [place] 1.015, Urine Protein Negative, Urine Glucose (UA) Normal, Urine Ketones 15 H, Urine Occult Blood Negative, Urine Nitrite Negative, Urine Bilirubin Negative, Urine Urobilinogen Normal, Ur Leukocyte Esterase Negative, Urine RBC 0 SEEN, Urine WBC 0 SEEN, Ur Squamous Epith Cells 0 SEEN, Urine Bacteria RARE, Urine Mucus 0 SEEN, Urine Test Negative 09/24/20 18:15: Lactic Acid 0.5 09/25/20 06:40: WBC 5.7, RBC 4.08 L, Hgb 11.2 L, Hct 36.0 L, MCV 88.2, MCH 27.5, MCHC 31.1 L, RDW Std Deviation 49.9 H, RDW Coeff of Guilherme 15.3 H, Plt Count 330, MPV 8.6, Immature Gran % (Auto) 0.200, Neut % (Auto) 60.5, Lymph % (Auto) 24.2, [place] % (Auto) 9.5, Eos % (Auto) 5.1 H, Baso % (Auto) 0.5, Absolute Neuts (auto) 3.4, Absolute Lymphs (auto) 1.37, Nucleated RBC % 0 09/25/20 06:40: Sodium 138, Potassium 3.7, [place] 106, Carbon Dioxide 28.0, Anion Gap 4 L, BUN 8, Creatinine 0.60, Estim Creat Clear Calc 103.10, Est GFR (MDRD) Af Amer 142, Est GFR (MDRD) Non-Af 118, BUN/Creatinine Ratio 13.3, Glucose 114 H, Calcium 8.2 L Current Medications Acetaminophen (Acetaminophen 325 Mg Tablet) 650 mg PO Q6H PRN PRN PRN Reason: Pain Score 1-10/Temp > 100.7 F Last Admin: 09/25/20 08:13 Dose: 650 mg Documented by: Dicyclomine HCl (Dicyclomine 10 Mg Capsule) 20 mg PO ACHS [facility] Last Admin: 09/25/20 11:37 Dose: 20 mg Documented by: Enoxaparin Sodium (Enoxaparin 40 Mg/0.4 Ml Syringe) 40 mg SC DAILY [facility] Last Admin: 09/25/20 08:06 Dose: 40 mg Documented by: Gabapentin (Gabapentin 600 Mg Tablet) 600 mg PO 4X/DAY [facility] Last Admin: 09/25/20 12:17 Dose: 600 mg Documented by: Hydrochlorothiazide (Hydrochlorothiazide 25 Mg Tablet) 25 mg PO DAILY [facility] Last Admin: 09/25/20 08:05 Dose: 25 mg Documented by: Hydromorphone HCl (Hydromorphone 0.5 Mg/0.5 Ml Syringe) 0.5 mg IV Q2H PRN PRN PRN Reason: Pain Score 6-10 Last Admin: 09/25/20 14:27 Dose: 0.5 mg Documented by: Lactated Ringer's () 1,000 mls @ 75 mls/hr IV .[id number] [facility] Last Admin: 09/25/20 12:14 Dose: 75 mls/hr Documented by: Lamotrigine (Lamotrigine 100 Mg Tablet) 200 mg PO DAILY [facility] Last Admin: 09/25/20 08:05 Dose: 200 mg Documented by: Levothyroxine Sodium (Levothyroxine 50 Mcg Tablet) 50 mcg PO DAILY@0600 [facility] Last Admin: 09/25/20 06:00 Dose: 50 mcg Documented by: Lisinopril (Lisinopril 40 Mg Tablet) 40 mg PO DAILY [facility] Last Admin: 09/25/20 08:05 Dose: 40 mg Documented by: Melatonin (Melatonin 3 Mg Tablet) 3 mg PO QHS PRN PRN PRN Reason: INSOMNIA Nicotine (Nicotine 14 Mg Patch) 14 mg TD DAILY [facility] Last Admin: 09/25/20 08:07 Dose: 14 mg Documented by: Ondansetron HCl (Ondansetron 4 Mg/2 Ml Vial) 4 mg IV Q8H PRN PRN PRN Reason: NAUSEA/VOMITING Last Admin: 09/25/20 03:38 Dose: 4 mg Documented by: Pantoprazole Sodium (Pantoprazole Sodium 40 Mg Tablet) 40 mg PO BID [facility] Last Admin: 09/25/20 08:05 Dose: 40 mg Documented by: Paroxetine HCl (Paroxetine Cr 12.5 Mg Tablet) 37.5 mg PO DAILY [facility] Last Admin: 09/25/20 08:14 Dose: 37.5 mg Documented by: Quetiapine Fumarate (Quetiapine 100 Mg Tablet) 300 mg PO DAILY@2200 [facility] Last Admin: 09/24/20 23:38 Dose: Not Given Documented by: Senna/Docusate Sodium (Senna/Docusate Sodium 1 Tablet) 2 tablet PO BID PRN PRN PRN Reason: Constipation Sodium [place] (0.9% Saline Lock 10 Ml Syringe) 10 - 40 ml IV UD PRN PRN Reason: SALINE FLUSH Last Admin: 09/25/20 14:28 Dose: 10 ml Documented by: Discharge Diet: No Restrictions Discharge Activity: Return to Normal Activity Home Medications: Medications to take at Discharge Acetaminophen/Butalbital/Caffe [Fioricet] 1 tab PO Q4H PRN PRN 09/24/20 Gabapentin [Neurontin] 600 mg PO 4X/DAY 09/24/20 Hydrochlorothiazide [Hctz] 25 mg PO DAILY 09/24/20 Lamotrigine [Lamictal] 200 mg PO DAILY 09/24/20 Levothyroxine [Synthroid] 50 mcg PO DAILY 09/24/20 Lisinopril [Zestril] 40 mg PO DAILY 09/24/20 Pantoprazole Sodium [Protonix] 40 mg PO BID 09/24/20 Paroxetine HCl [Paxil Cr] 37.5 mg PO DAILY 09/24/20 Quetiapine Fumarate [Seroquel] 300 mg PO DAILY 09/24/20 traZODone [Desyrel] 100 mg PO QHS 09/24/20 Dicyclomine HCl [Bentyl] 20 mg PO ACHS 10 Days #30 cap 09/25/20 Oxycodone [Oxyir] 5 mg PO Q4H PRN PRN 3 Days #18 tab 09/25/20 Following Prescriptions Were Given to Patient: Dicyclomine HCl [Bentyl] 20 mg PO ACHS 10 Days #30 cap Transmission Status: Received by [facility] [facility] Oxycodone [Oxyir] 5 mg PO Q4H PRN PRN 3 Days #18 tab PRN Reason: Pain Score 6-10 Transmission Status: Received by [facility] [facility] Primary Care Physician: [facility] Doctor,Out of [NON-STAFF] - Please follow up with your Primary Care Physician in: within 1 week Disposition: Home Minutes spent on discharge:: 40 Patient Condition:: Stable Medical Necessity - Tobacco Use Smoking Status: Current every day smoker Tobacco Use: Cigarettes Meaningful Use Info Meaningful Use Diagnoses (Choose all that apply): None applicable OBSV E&M: 94905 Observation care discharge
--- NOTE | 2020-09-25 16:43 | PHA.DC.MC ---
Pharmacy Service has performed discharge medication reconciliation and counseling for this patient. The patient was counseled on the following discharge medications and changes in medications for homegoing were reviewed. 1. DICYCLOMINE The Reason for Use, instructions for use, and potential side effects were reviewed for all new medications. The patient's questions regarding all of their medications were answered. The patient demonstrated some understanding but would benefit from further education and reinforcement. Home Medications Acetaminophen/Butalbital/Caffe [Fioricet] 1 tab PO Q4H PRN PRN 09/24/20 Gabapentin [Neurontin] 600 mg PO 4X/DAY 09/24/20 Hydrochlorothiazide [Hctz] 25 mg PO DAILY 09/24/20 Lamotrigine [Lamictal] 200 mg PO DAILY 09/24/20 Levothyroxine [Synthroid] 50 mcg PO DAILY 09/24/20 Lisinopril [Zestril] 40 mg PO DAILY 09/24/20 Pantoprazole Sodium [Protonix] 40 mg PO BID 09/24/20 Paroxetine HCl [Paxil Cr] 37.5 mg PO DAILY 09/24/20 Quetiapine Fumarate [Seroquel] 300 mg PO DAILY 09/24/20 traZODone [Desyrel] 100 mg PO QHS 09/24/20 Dicyclomine HCl [Bentyl] 20 mg PO ACHS 10 Days #30 cap 09/25/20 The patient's discharge medication list was reviewed for discrepancies and discrepancies were resolved. NOTE: Pt requested medications be transferred from [facility] to [facility]. Contacted [facility] to notify them of pt wishes for med to be sent to [facility] and meds to beds delivery. [facility] to call and get Rx from [facility].
[2020-09-25 17:59] VITALS: BP 126/80; PULSE 96; RESP 18; TEMP 36.7; O2SAT 98
== END 2020-09-25 18:46 | disposition home or self-care (01) ==
LOC: ED 16:02 → MS3 20:16
PROVIDERS: Admitting Provider Hospitalist; Emergency Provider Student in an Organized Health Care Education/Training Program; PCP Family Medicine; Visit Provider Internal Medicine
DX: R10.2 Pelvic and perineal pain (principal); I10 Essential (primary) hypertension; E03.9 Hypothyroidism, unspecified; K21.9 Gastro-esophageal reflux disease without esophagitis; F31.9 Bipolar disorder, unspecified; Z98.84 Bariatric surgery status; Z79.899 Other long term (current) drug therapy; F17.210 Nicotine dependence, cigarettes, uncomplicated; G89.29 Other chronic pain
CPT/HCPCS: 36415; 71275; 74177; 76830; 80048; 80053; 81001; 81025; 83605; 83690; 85025; 96361; 96372; 96374; 96375; 96376; 99218; 99284; 99406; J7030; J7120; Q9967; A4216; G0378; J2405

== ENCOUNTER 2020-12-31 14:08 | Emergency (ER) | payer BC, SELFPAY ==
[2020-12-31 14:09] VITALS: BP 127/77; PULSE 67; RESP 18; TEMP 36; O2SAT 98; BMI 27.3
[2020-12-31] MEDS: 0.9% Normal Saline 1,000 ML 1000 ML IV (15:27)
[2020-12-31] MEDS: Morphine 4 MG/ML Syringe IV ×2 (15:28→15:55)
[2020-12-31] MEDS: Ondansetron 4 MG/2 ML Vial IV (15:28)
[2020-12-31 15:36] LABS: Absolute Lymphocyte Count 1.59 X10^3/uL (0.83-4.51); Absolute Neutrophil Count 6.4 X10^3/uL (2.0-7.7); Basophil# 0.04 X10^3/uL; Basophil% 0.4 % (0-1); Eosinophil# 0.26 X10^3/uL; Eosinophils% 2.9 % (0-5); Hematocrit 36.8 % (37-47); Hemoglobin 11.9 g/dL (12.0-15.0); Lymphocyte # 1.59 X10^3/ul (0.83-4.51); Lymphocyte % 17.5 % (19-41); Mean Corp Hgb Conc 32.3 g/dL (32-36); Mean Corpuscular Hgb 27.7 pg (27.0-32.0); Mean Corpuscular Volume 85.8 fL (81-99); Mean Platelet Vol. 8.8 fl (6.2-12.0); Monocyte# 0.73 X10^3/uL; NRBC Flagged by Analyzer 0 % (0-5); Neutrophil # 6.43 X10^3/uL (2.7-7.7); Neutrophil % 70.9 % (47-70); Platelet Count 377 K/mm3 (150-450); RBC Distribution Width CV 14.9 % (11.6-14.6); RBC Distribution Width SD 46.8 fl (35.1-43.9); Red Blood Count 4.29 M/mm3 (4.2-5.4); White Blood Count 9.1 K/mm3 (4.4-11.0)
[2020-12-31 16:06] LABS: ALB/GLOB Ratio 1.2 RATIO (0.9-2.4); AST(SGOT) 12 U/L (15-37); Alanine Aminotransfer ALT/SGPT 22 U/L (13-56); Albumin, Serum 3.6 g/dL (3.2-5.0); Alkaline Phosphatase 87 U/L (45-117); Anion Gap 5 (5-15); BUN 8 mg/dL (7-18); BUN/Creat Ratio 12.8 RATIO (10-20); Calcium,Total 8.8 mg/dL (8.5-10.1); Chloride 111 mmol/L (98-107); Creatinine, Serum 0.63 mg/dL (0.55-1.02); EST Glomerular Filtration Rate 112 mL/min (>60); Est Glom Filt Rate - Afr Amer 135 mL/min (>60); Globulin 3.1 g/dL (2.2-4.2); Glucose 88 mg/dL (74-106); Lipase 87 U/L (73-393); Potassium 3.8 mmol/L (3.5-5.1); Protein, Total 6.7 g/dL (6.4-8.2); Sodium Level 141 mmol/L (136-145)
[2020-12-31 16:15] LABS: Internal QC Validated? YES +Cl - CLEAR BKGD; Pregnancy, Serum, hCG Quali. NEGATIVE Negative
--- NOTE | 2020-12-31 16:26 | ED.VIS.GI ---
HPI HPI - GI History of Present Illness Chief Complaint: Abd Pain Narrative Narrative: 40-year-old female patient of Dr. Garcia. She reports that she has had abdominal pain for quite some time. She had endoscopy and colonoscopy [address] Rodriguez at [facility]. States that she was told that she had a an ulcer. She was placed on Protonix and Carafate. Patient reports that she has had upper abdominal pain ever since that time. Is a sharp pain Zeta 10 severity. Is worsened by vomiting relieved by nothing. She states that she has vomited twice yesterday and once today. There is streak of blood in the vomit today. She denies any diarrhea. Her last bowel movement was yesterday. No melena or hematochezia. She does report she had a poor appetite for the past 3 days. [facility] Medical History (Updated 12/31/20 @ 17:[address] Chet Hutchinson MD) Abdominal pain Depression Hypertension Hypothyroidism Home Medications fkxoejhbzj-[id number]-ixxw 1 tab PO Q4H PRN PRN 09/24/20 [History Last Taken Unknown] gabapentin 600 mg PO 4X/DAY 09/24/20 [History Last Taken 09/24/20] hydrochlorothiazide 25 mg PO DAILY 09/24/20 [History Last Taken 09/24/20] lamotrigine 200 mg PO DAILY 09/24/20 [History Last Taken 09/24/20] levothyroxine 50 mcg PO DAILY 09/24/20 [History Last Taken 09/24/20] lisinopril 40 mg PO DAILY 09/24/20 [History Last Taken 09/24/20] pantoprazole 40 mg PO BID 09/24/20 [History Last Taken 09/24/20] paroxetine HCl 37.5 mg PO DAILY 09/24/20 [History Last Taken 09/24/20] trazodone 100 mg PO QHS 09/24/20 [History Last Taken Unknown] hydrocodone-acetaminophen 1 tab PO Q6H PRN 3 Days #10 tab 12/31/20 [Rx Last Taken Unknown] ondansetron 4 mg PO Q8H PRN #10 tab 12/31/20 [Rx Last Taken Unknown] sucralfate 1 g PO 4X/DAY 12/31/20 [History Last Taken Unknown] Allergy/AdvReac Type Severity Reaction Status Date / Time NSAIDS (Non-Steroidal AdvReac Other Verified 12/31/20 14:10 Anti-Inflamma Social History Smoking Status: Current every day smoker tobacco type: cigarettes ROS ROS ED Constitutional Constitutional ED: Denies chills, fever(s) or sweats Eyes Eyes: Denies change in vision ENT ENT ED: Denies sore throat Cardiovascular Cardiovascular: Denies chest pain Respiratory/Chest Respiratory/Chest: Denies cough, dyspnea or dyspnea on exertion Gastrointestinal Gastrointestinal: Reports abdominal pain, nausea and vomiting; Denies diarrhea or melena Genitourinary Genitourinary ED: Denies dysuria or urinary frequency Musculoskeletal Musculoskeletal: Denies myalgias Integumentary Denies rash Neurologic Neurologic: Denies headache(s), paresthesias or weakness EXAM Physical Exam Const Vital Signs: 12/31/20 14:09 Temperature 96.8 F L Temperature Source Temporal Pulse Rate 67 Respiratory Rate 18 Blood Pressure 127/77 H Blood Pressure Mean 93 Pulse Ox 98 Oxygen Delivery Method Room Air Positive well nourished and well developed General Appearance ED: well developed HEENT Reports normocephalic and head/scalp atraumatic Eyes PERRL Neck no lymphadenopathy, supple and no JVD General: Negative for tenderness Resp normal respiratory effort and clear to auscultation bilaterally Cardio regular rate, regular rhythm and no murmurs GI normal to inspection, nondistended, normoactive bowel sounds and non-distended GI Narrative: No guarding, rebound, or peritoneal signs. Moderate tenderness to palpation in the epigastric region of the left upper quadrant. Auscultation: normoactive bowel sounds Palpation: soft Back/Spine Back/Spine Narrative: Nontender. Extremity General Extremety ED: Negative for edema or tenderness General Extremity: Negative for edema Neuro oriented x3, CN's II-XII intact bilaterally and no sensory deficits noted Sensorium / Orientation: alert Motor Exam: strength 5/5 throughout Psych mental status grossly normal Skin no rashes or lesions noted MDM MDM Lab Data Labs: Laboratory Results - last 24 hr 12/31/20 12/31/20 12/31/20 15:20 15:20 15:20 WBC 9.1 RBC 4.29 Hgb 11.9 L Hct 36.8 L MCV 85.8 MCH 27.7 MCHC 32.3 RDW Std Deviation 46.8 H RDW Coeff of Guilherme 14.9 H Plt Count 377 MPV 8.8 Immature Gran % (Auto) 0.300 Neut % (Auto) 70.9 H Lymph % (Auto) 17.5 L [place] % (Auto) 8.0 Eos % (Auto) 2.9 Baso % (Auto) 0.4 Absolute Neuts (auto) 6.4 Absolute Lymphs (auto) 1.59 Nucleated RBC % 0 Sodium 141 Potassium 3.8 Chloride 111 H Carbon Dioxide 25.0 Anion Gap 5 BUN 8 Creatinine 0.63 Estim Creat Clear Calc 102.50 Est GFR (MDRD) Af Amer 135 Est GFR (MDRD) Non-Af 112 BUN/Creatinine Ratio 12.8 Glucose 88 Calcium 8.8 Total Bilirubin 0.30 AST 12 L ALT 22 Alkaline Phosphatase 87 Total Protein 6.7 Albumin 3.6 Globulin 3.1 Albumin/Globulin Ratio 1.2 Lipase 87 Serum , Qual NEGATIVE Treatment and Re-Evaluation Comments:: Emergency department course: Patient had an IV placed. She was given morphine and Zofran IV. She is resting more comfortably. Treatment plan: Patient's labs are unremarkable. She has a CT the that shows no acute disease. She will be discharged with instructions to follow-up with her on site manager and/or primary care physician in 1 to 2 days if not improving. She will be given a prescription for Zofran and 10 [place]. Discharge Plan Triage Chief Complaint: Abd Pain ED Provider: Chet Hutchinson Dx/Rx/DC Orders Clinical Impression: Abdominal pain Instructions: ED Abdominal Pain Unkn Cause Fem Prescriptions: New hydrocodone-acetaminophen 5-325 mg tablet 1 tab PO Q6H PRN (Reason: pain) 3 Days Qty: 10 RF: 0 ondansetron 4 mg tablet,disintegrating 4 mg PO Q8H PRN (Reason: nausea and vomiting) Qty: 10 RF: 0 No Action gabapentin 600 MG tablet 600 mg PO 4X/DAY RF: 0 lamotrigine 200 MG tablet 200 mg PO DAILY RF: 0 levothyroxine 50 MCG tablet 50 mcg PO DAILY RF: 0 pantoprazole 40 MG tablet 40 mg PO BID RF: 0 hydrochlorothiazide 25 MG tablet 25 mg PO DAILY RF: 0 lisinopril 40 MG tablet 40 mg PO DAILY RF: 0 paroxetine HCl 37.5 MG tablet extended release 24 hr 37.5 mg PO DAILY RF: 0 trazodone 100 MG tablet 100 mg PO QHS RF: 0 gitsnqjxbd-ylicopovxlwnk-lamp 1 TABLET tablet 1 tab PO Q4H PRN PRN (Reason: migraines) RF: 0 sucralfate 1 gram tablet 1 g PO 4X/DAY RF: 0 Primary Care Provider: Cruz Garcia Referrals: Cruz Garcia DO [Primary Care Provider] - 1-2 Days if not improving
--- NOTE | 2020-12-31 16:30 | CT_ITS ---
STUDY: CT ABDOMEN AND PELVIS WITH CONTRAST REASON FOR EXAM: Female, 40 years old. Upper abd pain RADIATION DOSAGE (If Supplied By Facility): CTDIvol = ( 14.74 ) mGy, DLP = ( 799.47 ) mGycm TECHNIQUE: Transaxial images were obtained from the dome of the diaphragm to the symphysis pubis without oral contrast. IV 100mL Isovue-300 was administered. Sagittal and coronal images were reconstructed. Individualized dose optimization techniques were used for this CT. COMPARISON: 09/24/2020 FINDINGS: There is minimal bibasilar atelectasis and/or scarring within the lower lobes. The visualized portions of the heart are within normal limits. There is minimal periportal edema, may be secondary to recent intravenous rehydration. There is a stable low-attenuation focus within the left hepatic lobe adjacent to the falciform ligament which may reflect focal fat. There is non-visualization of the gallbladder, which may be secondary to either contraction or a prior cholecystectomy. Normal spleen. Normal pancreas. Normal bilateral adrenal glands. Normal right kidney. Normal left kidney. There are postsurgical changes of the stomach and small intestine. Normal colon. There is non-visualization of the appendix. Normal abdominal aorta. Normal inferior vena cava. Normal retroperitoneum. Normal urinary bladder. There is an intrauterine device in place. Normal abdominal wall. There are diffuse degenerative changes of the visualized lumbar spine. There are bilateral pars defects associated with a grade 2 anterior spondylolisthesis of L5 on S1. CT/Abdomen/Pelvis W IV Cont ONLY IMPRESSION: No acute intra-abdominal process. Bilateral L5 pars defects associated with a grade 2 anterior spondylolisthesis of L5 on S1. Electronically Signed: Marta Garces MD at 16:58 EDT Tel , Service support ,
[2020-12-31 17:13] VITALS: BP 121/70; PULSE 78; RESP 16; O2SAT 98
== END 2020-12-31 17:16 | disposition home or self-care (01) ==
LOC: ED 14:38
PROVIDERS: Emergency Provider Emergency Medicine; PCP Family Medicine
DX: R10.10 Upper abdominal pain, unspecified (principal); K92.0 Hematemesis; I10 Essential (primary) hypertension; E03.9 Hypothyroidism, unspecified; F32.9 Major depressive disorder, single episode, unspecified; F17.210 Nicotine dependence, cigarettes, uncomplicated; Z79.890 Hormone replacement therapy; Z79.899 Other long term (current) drug therapy
CPT/HCPCS: 74177; 80053; 83690; 84703; 85025; 96361; 96374; 96375; 96376; 99285; J7030; Q9967; A4216; J2405